=== PATIENT | male | born 1980 | race Two or more races ===

== ENCOUNTER 2022-01-15 18:10 | Emergency (ER) | payer MEDICAID ==
[~2022-01-15] VITALS: Ht 172.7 cm; Wt 79.4 kg
[2022-01-15] MEDS ORDERED: IV NORMAL SALINE 1000 ML BAG IV ONE (18:45)
[2022-01-15] MEDS ORDERED: IV NORMAL SALINE 250 ML IV ONE (19:31)
[2022-01-15] MEDS ORDERED: IOHEXOL 300MG/ML 100 ML INFUS..BTL ONE (19:31)
[2022-01-15] MEDS ORDERED: SWABABLE VALVE TRANSFER SET EA MC ONE (19:31)
[2022-01-15 20:02] LABS: HEMATOCRIT 46.5 % (36.7-47.1); MEAN CORPUSCULAR HEMOGLOBIN 31.5 uug (23.8-33.4); MEAN CORPUSCULAR VOLUME 90.9 fL (73.0-96.2); PLATELET COUNT (AUTO) 204 K/uL (152-348)
[2022-01-15 20:03] LABS: *BILIRUBIN,URIN NEGATIVE (NEGATIVE); *BLOOD, URINE NEGATIVE (NEGATIVE); *CLARITY,URINE CLEAR (CLEAR); *COLOR,URINE YELLOW (YELLOW); *KETONES,URINE NEGATIVE (NEGATIVE); *UROBILINOGEN,URINE 0.2 E.U./dl (NORMAL); LEUKOCYTE ESTERASE ,URINE NEGATIVE (NEGATIVE); NITRITE, URINE NEGATIVE (NEGATIVE); PH,URINE 7.5 (5.0-8.0); UGLUCOSE NEGATIVE (NEGATIVE)
[2022-01-15 20:15] LABS: CREATININE 1.1 mg/dL (0.6-1.3); POTASSIUM 3.9 mmol/L (3.5-5.1)
[2022-01-15 20:22] LABS: BILIRUBIN,DIRECT 0.1 mg/dL (0.0-0.2); BILIRUBIN,TOTAL 0.5 mg/dL (0.2-1.0); TOTAL PROTEIN, SERUM 7.5 g/dL (6.4-8.2)
--- NOTE | 2022-01-15 20:29 | NUR ---
pt went for cat scan.
--- NOTE | 2022-01-15 20:38 | NUR ---
pt returned from cat scan.
[2022-01-15] MEDS ORDERED: BISA10SU61 RC (21:36)
[2022-01-15] MEDS ORDERED: BISA-79 PO (21:36)
[2022-01-15] MEDS ORDERED: MAGN296S70 PO (21:36)
[2022-01-15 21:50] VITALS: BP 130/76
--- NOTE | 2022-01-15 21:50 | NUR ---
Patient discharged to home in stable condition. Written and verbal after care instructions given. Patient verbalizes understanding of instructions. Stressed follow up or return to ER for worsening s/s.
== END 2022-01-15 21:51 | disposition home or self-care (01) ==
LOC: ER 18:15
DX: K59.00 Constipation, unspecified (principal)
CPT/HCPCS: 99285; 74177; 96360; 80076; 80048; 81003; 83690; 85025; 36415; 93005; 74021; Q9967; J7040; A4663

== ENCOUNTER 2022-03-29 13:56 | Emergency (ER) | payer MEDICAID ==
[~2022-03-29] VITALS: Ht 172.7 cm; Wt 79.4 kg
[~2022-03-29 13:56] MED LIST: BISA-79 PO; BISA10SU61 RC; MAGN296S70 PO
[2022-03-29] MEDS ORDERED: FAMOTIDINE 20 MG TABLET ONE (14:42)
[2022-03-29] MEDS ORDERED: MAG HYDROX/AL HYDROX/SIMETH 30 ML LIQUID UDC ONE (14:42)
[2022-03-29] MEDS ORDERED: ONDANSETRON 4 MG/2 ML VIAL ONE (14:42)
[2022-03-29] MEDS ORDERED: HYDROCODONE/APAP 5-325MG TABLET ONE (14:43)
[2022-03-29] MEDS ORDERED: ONDANSETRON 4 MG/2 ML VIAL IV ONE (14:45)
[2022-03-29] MEDS ORDERED: FAMOTIDINE 20 MG TABLET PO ONE (14:45)
[2022-03-29] MEDS ORDERED: MAG HYDROX/AL HYDROX/SIMETH 30 ML LIQUID UDC PO ONE (14:45)
[2022-03-29] MEDS ORDERED: HYDROCODONE/APAP 5-325MG TABLET PO ONE (14:45)
[2022-03-29] MEDS ORDERED: ONDANSETRON ODT 4 MG TAB.RAPDIS ONE (14:52)
[2022-03-29 14:57] LABS: HEMATOCRIT 48.8 % (36.7-47.1); MEAN CORPUSCULAR HEMOGLOBIN 30.5 uug (23.8-33.4); MEAN CORPUSCULAR VOLUME 88.9 fL (73.0-96.2); PLATELET COUNT (AUTO) 241 K/uL (152-348)
[2022-03-29] MEDS ORDERED: ONDANSETRON ODT 4 MG TAB.RAPDIS SL ONE (15:00)
[2022-03-29 15:13] LABS: POTASSIUM 4.2 mmol/L (3.5-5.1)
[2022-03-29 15:18] LABS: BILIRUBIN,DIRECT 0.2 mg/dL (0.0-0.2); BILIRUBIN,TOTAL 0.5 mg/dL (0.2-1.0); TOTAL PROTEIN, SERUM 7.5 g/dL (6.4-8.2)
[2022-03-29 15:32] LABS: *BILIRUBIN,URIN NEGATIVE (NEGATIVE); *BLOOD, URINE NEGATIVE (NEGATIVE); *CLARITY,URINE CLEAR (CLEAR); *COLOR,URINE YELLOW (YELLOW); *KETONES,URINE NEGATIVE (NEGATIVE); *UROBILINOGEN,URINE 0.2 E.U./dl (NORMAL); LEUKOCYTE ESTERASE ,URINE NEGATIVE (NEGATIVE); NITRITE, URINE NEGATIVE (NEGATIVE); UGLUCOSE NEGATIVE (NEGATIVE)
[2022-03-29] MEDS ORDERED: SIME80TA15 PO (16:38)
[2022-03-29] MEDS ORDERED: FAMO-132 PO (16:38)
[2022-03-29] MEDS ORDERED: POLY17PO18 PO (16:38)
== END 2022-03-29 17:31 | disposition home or self-care (01) ==
LOC: ER 13:56
DX: M54.9 Dorsalgia, unspecified (principal); R10.9 Unspecified abdominal pain; K59.00 Constipation, unspecified; R94.5 Abnormal results of liver function studies
CPT/HCPCS: 36415; 83690; 85025; A4663; J2405; Q0162